=== PATIENT | male | born 1990 | race Caucasian/White ===

== ENCOUNTER 2017-05-22 03:32 | Emergency (ER) | payer OTHER ==
[~2017-05-22] VITALS: Ht 195.6 cm; Wt 109.1 kg
[2017-05-22 03:33] VITALS: PULSE 101; RESP 25; O2SAT 99
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
[2017-05-22] MEDS ORDERED: Ondansetron 2 mg/mL 2 mL Inj IVPUSH ONE (03:45)
[2017-05-22] MEDS ORDERED: fentaNYL-PF 50 mCg/mL 2 mL Inj IVPUSH PRN (03:45)
[2017-05-22] MEDS ORDERED: TdaP Vaccine 0.5 mL Inj IM ONE (03:55)
[2017-05-22] MEDS ORDERED: _HYDROcodone/APAP 5-325 mg Tablet PO PRN (04:45)
[2017-05-22 04:52] LABS: BASOPHILS % (AUTO) 0.2 % (0-3); EOSINOPHILS % (AUTO) 0.4 % (0-5); MONOCYTES % (AUTO) 4.9 % (4-12); Mean Corpuscular Hemoglobin 33.6 pg (27.0-35.0); Mean Corpuscular Volume 94.9 fL (81-100); NEUTROPHILS % (AUTO) 70.8 % (40-74); Platelet Count 290 bil/L (150-400)
[2017-05-22] MEDS ORDERED: IBUP-1827 PO (05:19)
[2017-05-22] MEDS ORDERED: HYDR-3090 PO (05:19)
[2017-05-22] MEDS ORDERED: SILV400C TP (05:19)
[2017-05-22 06:34] VITALS: BP 124/80; PULSE 103; RESP 22; O2SAT 96
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
[2017-05-23] MEDS ORDERED: OXYC1TAB24 PO (22:54)
[2017-05-23] MEDS ORDERED: SILV400C TP (22:54)
== END 2017-05-22 06:34 | disposition home or self-care (01) ==
LOC: EDBD 03:32 → SED 03:32
DX: T20.20XA Burn of second degree of head, face, and neck, unspecified site, initial encounter (principal); T22.232A Burn of second degree of left upper arm, initial encounter; T24.212A Burn of second degree of left thigh, initial encounter; T21.02XA Burn of unspecified degree of abdominal wall, initial encounter; T31.0 Burns involving less than 10% of body surface; X03.0XXA Exposure to flames in controlled fire, not in building or structure, initial encounter; Y92.9 Unspecified place or not applicable; Y93.39 Activity, other involving climbing, rappelling and jumping off; Y99.8 Other external cause status; F10.120 Alcohol abuse with intoxication, uncomplicated; Y90.6 Blood alcohol level of 120-199 mg/100 ml; F17.200 Nicotine dependence, unspecified, uncomplicated; Z23 Encounter for immunization
CPT/HCPCS: 16025; 36415; 71010; 80053; 81002; 85025; 90471; 90715; 96374; 96375; 99284; G0480; J2405; J3010

== ENCOUNTER 2017-05-23 18:12 | Emergency (ER) | payer OTHER ==
[~2017-05-23 18:12] MED LIST: HYDR-3090 PO; IBUP-1827 PO; SILV400C TP
[2017-05-23 18:39] VITALS: BP 129/83; PULSE 109; RESP 16; O2SAT 100
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
[2017-05-23] MEDS ORDERED: HYDROcodone-APAP 5-325 mg Tablet PO ONE (21:25)
--- NOTE | 2017-05-23 22:49 | DRSVH ---
PROCEDURE: X-RAY LEFT ELBOW COMPLETE, MINIMUM THREE VIEWS ([id number]) INDICATIONS: fall can't straighten TECHNIQUE: 4 views of the elbow were acquired. COMPARISON: None. FINDINGS: Bones: No definite fractures or dislocations. No suspicious bony lesions. Soft tissues: There is suggestion of a small elbow joint effusion. No suspicious soft tissue calcifi cations. IMPRESSION: 1. No definite fracture or dislocation. If clinical concern persists for an occult fracture, recommend a repeat study in 7-10 days. Dictated by: Ernesto Mandujano M.D. on 05/23/2017 at 22:46 Approved by: Ernesto Mandujano M.D. on 05/23/2017 at 22:47
[2017-05-23] MEDS ORDERED: _oxyCODONE/APAP 5-325 mg Tablet PO PRN (22:50)
[2017-05-23] MEDS ORDERED: OXYC1TAB24 PO (22:54)
[2017-05-23] MEDS ORDERED: SILV400C TP (22:54)
[2017-05-23 23:33] VITALS: BP 134/68; PULSE 88; RESP 14; O2SAT 99
== END 2017-05-23 23:34 | disposition home or self-care (01) ==
LOC: SED 18:12
DX: T22.222A Burn of second degree of left elbow, initial encounter (principal); T21.22XA Burn of second degree of abdominal wall, initial encounter; T24.212A Burn of second degree of left thigh, initial encounter; T20.06XA Burn of unspecified degree of forehead and cheek, initial encounter; S53.402A Unspecified sprain of left elbow, initial encounter; X08.8XXA Exposure to other specified smoke, fire and flames, initial encounter; Y93.9 Activity, unspecified; Y92.9 Unspecified place or not applicable; Y99.9 Unspecified external cause status; Z91.19 Patient's noncompliance with other medical treatment and regimen; F17.200 Nicotine dependence, unspecified, uncomplicated
CPT/HCPCS: 73080; 96372; 99283; J1885